=== PATIENT | female | born 1980 | race Caucasian/White ===

== ENCOUNTER 2022-08-03 08:00 | Emergency (ER) | payer BC ==
[~2022-08-03] VITALS: Ht 154.9 cm; Wt 67.3 kg
[~2022-08-03 08:00] MED LIST: CITALOPRAM40 MG PO; NORCO 325 MG-51 TAB PO; PREDNISONE20 MG PO; PROVENTIL0.09 MG/A1 IH
[2022-08-03 08:44] LABS: BASO % 0.3 % (0.0-2.0); EOS # 0.2 K/mm3 (0.0-0.7); EOS % 3.4 % (0.0-4.0); GRAN # 4.3 K/mm3 (1.4-6.5); GRAN % 64.2 % (42.2-75.2); HEMATOCRIT 41.9 % (37.0-47.0); HEMOGLOBIN 14.3 g/dl (12.5-16.0); LYMPH # 1.7 K/mm3 (1.2-3.4); LYMPH % 25.5 % (20.0-51.0); MEAN CELL VOLUME 99 fl (80.0-100.0); MEAN CORPUSCULAR HEMOGLOBIN 34 pg (27-31); MEAN CORPUSCULAR HGB CONC 34 g/dl (33.0-37.0); MEAN PLATELET VOLUME 8.8 fl (7.4-10.4); MONO # 0.4 K/mm3 (0.1-0.6); MONO % 6.3 % (1.7-9.3); PLATELET COUNT 292 K/mm3 (130-400); RED BLOOD COUNT 4.23 M/mm3 (4.10-5.30); REDCELL DISTRIBUTION WIDTH-CV 11.9 % (11.5-14.5)
[2022-08-03 08:59] LABS: BILIRUBIN,TOTAL 0.8 mg/dL (0.2-1.2); CALCIUM 8.9 mg/dL (8.4-10.2); CREATININE, serum 0.86 mg/dL (0.57-1.11); MAGNESIUM 2.1 mg/dL (1.6-2.6); PHOSPHOROUS 2.5 mg/dL (2.3-4.7); POTASSIUM 4.1 mmol/L (3.5-4.5); TOTAL PROTEIN 7.2 gm/dL (6.2-8.1)
[2022-08-03 09:33] LABS: BILIRUBIN,DIRECT 0.3 mg/dL (0.0-0.5)
[2022-08-03 09:53] LABS: COLLECTION METHOD CLEAN CATCH; URINE APPEARANCE Clear (CLEAR/HAZY); URINE BLOOD Negative (NEGATIVE); URINE COLOR Yellow (YELLOW); URINE GLUCOSE Negative (NEGATIVE); URINE KETONE Negative (NEGATIVE); URINE NITRATE Negative (NEGATIVE); URINE PROTEIN(semi-quant) Negative (NEGATIVE); URINE UROBILINOGEN 0.2 E.U/dL (0.2-1.0)
[2022-08-03 09:56] LABS: MUCOUS Present (NOT PRESENT); URINE BACTERIA None Seen /hpf (NONE SEEN); URINE WBC 0-2 /hpf (0-2)
[2022-08-03] MEDS ORDERED: BENTYL 20MG20 MG/TAB PO ×2 (10:03→11:31)
[2022-08-03] MEDS ORDERED: ZOFRAN ODT4 MG PO ×2 (10:03→11:31)
[2022-08-03 10:14] VITALS: BP 139/96; PULSE 18; TEMP 97.7
== END 2022-08-03 10:15 | disposition home or self-care (01) ==
LOC: COL.ER 08:00
PROVIDERS: Emergency Medicine
DX: K80.50 Calculus of bile duct without cholangitis or cholecystitis without obstruction (principal); F17.210 Nicotine dependence, cigarettes, uncomplicated; Z32.02 Encounter for pregnancy test, result negative; Z20.822 Contact with and (suspected) exposure to COVID-19; Z28.310 Unvaccinated for COVID-19
CPT/HCPCS: J1885; J2405; J7030